=== PATIENT | male | born 1950 | race Caucasian/White ===

== ENCOUNTER 2019-07-09 12:30 | Inpatient (IN) | payer MEDICARE ==
--- NOTE | 2019-07-09 13:25 | HP ---
SUPERVISING PHYSICIAN: Pepe Monteiro MD CHIEF COMPLAINT: Increasing shortness of breath and fever. HISTORY OF PRESENT ILLNESS: Mr. Adhikari is a 68 year-old patient who has a history of asthma. He was in the clinic today complaining of congestion and fever with associated body chills, increasing cough, increasing shortness of breath. He endorses the symptoms started about 3 days ago and significantly worsened yesterday. In the clinic a BioFire exam was run and he was found to have influenza A. Initial exam of 2-view chest x-ray shows contractual developing of right-sided pneumonia, lower lobe. He was significantly tachypneic in the clinic with respirations over 26, purse lip breathing. Oxygen saturation was in the low 90s at rest. He is no 02 dependent. His initial labs showed a white count of 3,000 without a current left shift. Dr. Storm, primary care physician, saw the patient in clinic and it was felt the patient was showing signs of significant sepsis related to influenza A infection, developing right lower lobe pneumonia and requested the patient be directly admitted for initiation of treatment of influenza and developing acute acquired pneumonia. He was admitted in stable condition. PAST MEDICAL HISTORY: Asthma. PAST SURGICAL HISTORY: Tonsillectomy. CURRENT MEDICATIONS: No home medications listed. ALLERGIES: No known drug allergies. FAMILY HISTORY: Father at age 66 secondary to a heart attack. Mother is advanced age at 80. He has one brother who at age 69 recently due to diabetic complications. He has another brother that with a heart attack, age unknown. He has one daughter who is healthy and lives in [place]. SOCIAL HISTORY: The patient recently moved to [place] from [place] within the last 2 months. He is , he is retired. 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 He denies any tobacco use ever, only drinks alcohol very infrequently. Does not use illicit drugs. REVIEW OF SYSTEMS: CONSTITUTIONAL: Positive for fevers, chills and fatigue. RESPIRATORY: Positive for increasing weakness, shortness of breath, nasal congestion, cough, chest congestion, work to breath with dyspnea. CARDIOVASCULAR: Negative for chest pain, palpitations or syncopal episodes, pedal edema. GASTROINTESTINAL: Denies nausea, vomiting, diarrhea, constipation or abdominal pain. GENITOURINARY: Negative for dysuria, hematuria, polyuria. EXTREMITIES: Denies arthralgias, joint swelling. NEUROLOGIC: Denies ataxia, seizures, headaches, vision changes, syncopal episodes or other focal deficits. SKIN: Denies unexplained lesions, rashes, moles or unexplained changes. HEMATOLOGIC: Denies easy bruising, unexplained bleeding or transfusion reactions. PHYSICAL EXAMINATION: VITAL SIGNS: Temperature 101.3, heart rate 85, blood pressure 155/78, respirations 26 to 28 initially, improving to 20 oxygen saturation improving with breathing treatments. Admission weight 120.3 kg. GENERAL: The patient appeared to be in a little mild distress secondary to some acute dyspnea was significant initially but improved with breathing treatments. HEENT: Temperatures clear bilaterally, oropharynx was pink. Mucous membranes were dry but no lesions. Nasal passage did show some clear drainage and mild congestion. NECK: Supple,non-tender, full range of motion. CHEST: Lungs were diminished significantly throughout with some very faint inspiration and expiration wheezing with some notable rhonchi heard, more prominent on the left compared to the right, more on the posterior lateral aspect to the left lung field. No rales were noted. CARDIOVASCULAR: Regular rate and rhythm without appreciable murmurs, rubs, or gallops. ABDOMEN: Obese, soft, non-tender, positive bowel sounds. EXTREMITIES: No edema. NEUROLOGIC: He was alert and oriented x 3. Cranial nerves II through XII were grossly intact, facial features were symmetrical. Extraocular movements were within normal limits. There was no notable nystagmus. LABORATORY STUDIES: White count 3,000, hemoglobin 14, hematocrit 41.1. Platelet count 79,000, differential shows to be without a left shift. Chemistries showed a low sodium at 132, potassium low at 3.6, anion gap normal at 12, carbon dioxide low at 19. BUN 18, creatinine 0.93, blood sugar 207, calcium 8.1 with lactic acid 1.8. Bilirubin slightly elevated at 1.4. Otherwise, liver functions were within normal limits. Urinalysis was pending. MICROBIOLOGY: Blood cultures pending. Influenza by BioFire at the clinic showed to be positive for influenza A, negative for B. RADIOLOGY: Chest x-ray in the clinic per radiology interpretation, per my interpretation and Dr. Storm's review show a possible right lower lobe pneumonia with mild consolidation. ASSESSMENT: 1. Sepsis secondary to Influenza and probable right and left lower lobe pneumonia, community acquired. 2. Influenza A infection. 3. Right lower and left lobe pneumonia with associated sepsis.. 4. History of asthma. 5. Thrombocytopenia and neutropenia, uncertain etiology. 6. Mild electrolyte imbalance with hyponatremia due to community acquired pneumonia. 7. Hyperglycemia with no formal history of diabetes. 8. Mildly elevated bilirubin probably due to some mild dehydration. PLAN: Mr. Adhikari is going to be admitted for initiation of treatment of community acquired pneumonia. Will initiate treatment for community acquired pneumonia artificial tears Rocephin and azithromycin as well a treat influenza with antivirals in the form of Xofluza. He will have Motrin and Tylenol as needed. Will start him on some IV fluids for some mild dehydration. Will recheck x-ray in the morning as well as chemistries and a CBC. Will order Lovenox but probably need to hold it until we get a repeat of his platelets in the morning since they are below 100,000. He is on aggressive pulmonary hygiene with Duoneb treatments and p.r.n. albuterol as needed. I anticipate his length of stay to be at least 2 to 3 days. Until we can transition him to outpatient management, I will continue to monitor and treat as needed. #[id number] [facility]
[2019-07-09] MEDS ORDERED: ALBUTEROL SULFATE 2.5 MG/3 ML VIAL NEB PRN (13:27)
[2019-07-09] MEDS ORDERED: SODIUM CHLORIDE 0.9% (FLUSH) 10 ML SYG IV PRN (13:27)
[2019-07-09] MEDS ORDERED: IBUPROFEN 400 MG TAB PO PRN (13:27)
[2019-07-09] MEDS ORDERED: ACETAMINOPHEN 325 MG TAB PO PRN (13:27)
[2019-07-09] MEDS ORDERED: IV SET AND CAP CHANGE INJ INJ SCH (13:30)
[2019-07-09] MEDS ORDERED: SODIUM CHL 0.9% 50ML MIN-BAG+ 50 ML IVPB ONE (15:16)
[2019-07-09] MEDS ORDERED: cefTRIAXone SODIUM 1 GM VIAL ONE (15:17)
[2019-07-09] MEDS: cefTRIAXone SODIUM 1 GM in SODIUM CHL 0.9% 50ML MIN-BAG+ 50 ML IVPB SCH (15:22)
[2019-07-09] MEDS: AZITHROMYCIN 250 MG TAB PO SCH (15:22)
[2019-07-09] MEDS ORDERED: BALOXAVIR MARBOXIL 20 MG TAB PO ONE (15:38)
[2019-07-09] MEDS ORDERED: BALOXAVIR MARBOXIL 40 MG TAB PO ONE (15:56)
[2019-07-09] MEDS: IPRATROPIUM/ALBUTEROL 3 ML VIAL INH SCH ×3 (16:00→20:10)
[2019-07-09] MEDS ORDERED: OMEPRAZOLE CAP 20 MG CAP ONE (19:58)
[2019-07-09] MEDS: ENOXAPARIN SODIUM 40 MG/0.4 ML SYG SUBCU SCH (21:01)
[2019-07-09] MEDS: SODIUM CHLORIDE 0.9% 1000ML 1,000 ML IVS PRN (21:01)
[2019-07-10] MEDS: SODIUM CHLORIDE 0.9% 1000ML 1,000 ML IVS PRN (03:20)
[2019-07-10] MEDS: OMEPRAZOLE CAP 20 MG CAP PO SCH (06:00)
--- NOTE | 2019-07-10 08:20 | RAD ---
EXAM DESCRIPTION: Chest x-ray two views: CLINICAL HISTORY: Pneumonia COMPARISON: None TECHNIQUE: PA and lateral views of the chest were obtained. FINDINGS: The heart is normal in size . The hilar and mediastinal structures are within normal limits. The pulmonary vascularity is normal . Retrocardiac infiltrate is noted. Peribronchial thickening and reactive airway changes are seen.. The bony structures are unremarkable. IMPRESSION: Left lower lobe infiltrate. Peribronchial thickening and generalized changes of bronchitis or reactive airway disease. Electronically signed by: Janene Beck MD 07/10/2019 8:19 AM [facility]
[2019-07-10] MEDS: IPRATROPIUM/ALBUTEROL 3 ML VIAL INH SCH ×4 (08:32→20:33)
[2019-07-10] MEDS ORDERED: cefTRIAXone SODIUM 1 GM VIAL ONE (14:30)
[2019-07-10] MEDS ORDERED: SODIUM CHL 0.9% 50ML MIN-BAG+ 50 ML IVPB ONE (14:30)
[2019-07-10] MEDS: AZITHROMYCIN 250 MG TAB PO SCH (14:53)
[2019-07-10] MEDS: cefTRIAXone SODIUM 1 GM in SODIUM CHL 0.9% 50ML MIN-BAG+ 50 ML IVPB SCH (14:53)
--- NOTE | 2019-07-10 15:55 | PN ---
SUPERVISING PHYSICIAN: Pepe Monteiro MD DATE: 07/10/19 SUBJECTIVE: The patient notes he is feeling a little bit better today. He is not quite as short of breath He does have a cough, it's nonproductive. He has been afebrile now since admission yesterday. He has had no chest pain, nausea or vomiting or other complaints. OBJECTIVE: VITAL SIGNS: Temperature 98.1, heart rate 60, blood pressure 160/72, respirations 18, oxygen saturation 94% on room air at rest. GENERAL: The patient is resting comfortably and appears to be in no distress. CHEST: Lung sounds are diminished towards the bases. There is just a faint rhonchi heard on the posterolateral left lung field, no wheezing, no rales. HEART: Regular rate and rhythm. ABDOMEN: Soft, nontender. Positive bowel sounds. EXTREMITIES: No edema. NEUROLOGIC: Alert and oriented times three. LABORATORY: White count 3,400, hemoglobin 13.5, hematocrit 38.5 with differential showing to be without a left shift. Chemistries show normal electrolytes today with BUN of 14, creatinine 0.82. MICROBIOLOGY: Blood cultures remain negative. RADIOLOGY: Repeat chest x-ray today per radiology interpretation shows left lower lobe infiltrate, some peribronchial thickening. ASSESSMENT: 1. Sepsis secondary to influenza and community acquired pneumonia, appears to be more left lower lobe than that. 2. Influenza A infection. 3. Right lower lobe pneumonia associated with sepsis. 4. History of asthma. 5. Thrombocytopenia and neutropenia, uncertain etiology. 6. Mild electrolyte imbalance with hyponatremia now resolved, probably due to pneumonia.. 7. Hyperglycemia with no formal history of diabetes. 8. Mildly elevated bilirubin probably due to some mild dehydration. . PLAN: Will continue with aggressive pulmonary hygiene treatment. He has been on Xofluza already. He remains on azithromycin and Rocephin. Will plan to repeat a CBC in the morning and anticipate to hopefully be able to discharge tomorrow. Until the, we will continue to monitor and treat as needed. #[id number] [facility]
[2019-07-10] MEDS: ENOXAPARIN SODIUM 40 MG/0.4 ML SYG SUBCU SCH (21:17)
[2019-07-11] MEDS: OMEPRAZOLE CAP 20 MG CAP PO SCH (06:11)
[2019-07-11] MEDS: IPRATROPIUM/ALBUTEROL 3 ML VIAL INH SCH ×2 (08:42→12:38)
[2019-07-11] MEDS: AZITHROMYCIN 250 MG TAB PO SCH (12:51)
[2019-07-11 13:21] VITALS: O2SAT 99
[2019-07-11 14:02] VITALS: BP 177/67; TEMP 97.9
[2019-07-11] MEDS: cefTRIAXone SODIUM 1 GM in SODIUM CHL 0.9% 50ML MIN-BAG+ 50 ML IVPB SCH (14:02)
--- NOTE | 2019-08-03 13:44 | DS ---
SUPERVISING PHYSICIAN: Pepe Monteiro MD ADMISSION DIAGNOSIS: 1. Sepsis secondary to Influenza and probable right and left lower lobe pneumonia, community acquired. 2. Influenza A infection. 3. Right lower and left lobe pneumonia with associated sepsis. 4. History of asthma. 5. Thrombocytopenia and neutropenia, uncertain etiology. 6. Mild electrolyte imbalance with hyponatremia due to community acquired pneumonia. 7. Hyperglycemia with no formal history of diabetes. 8. Mildly elevated bilirubin probably due to some mild dehydration. DISCHARGE DIAGNOSIS: 1. Sepsis secondary to influenza and community acquired pneumonia, right lower lobe. 2. Influenza A infection. 3. Right lower lobe pneumonia associated with sepsis. 4. History of asthma. 5. Thrombocytopenia and neutropenia, uncertain etiology. 6. Mild electrolyte imbalance with hyponatremia now resolved, probably due to pneumonia. 7. Hyperglycemia with no formal history of diabetes. 8. Mildly elevated bilirubin due to dehydration, resolving REASON FOR HOSPITALIZATION: Mr. Adhikari is a 68 year-old patient who has a history of asthma. He was in the clinic today complaining of congestion and fever with associated body chills, increasing cough, increasing shortness of breath. He endorses the symptoms started about 3 days ago and significantly worsened yesterday. In the clinic a BioFire exam was run and he was found to have influenza A. Initial exam of 2-view chest x-ray shows concern for developing right-sided pneumonia, lower lobe. He was significantly tachypneic in the clinic with respirations over 26, purse lip breathing. Oxygen saturation was in the low 90s at rest. He is no O2 dependent. His initial labs showed a white count of 3,000 without a current left shift. Dr. Storm, primary care physician, saw the patient in clinic and it was felt the patient was showing signs of significant sepsis related to influenza A infection, developing right lower lobe pneumonia and requested the patient be directly admitted for initiation of treatment of influenza and developing acute acquired pneumonia. He was admitted in stable condition. LABORATORY: White count on discharge 2,800, hemoglobin 13.3, hematocrit 38.2, differential without a left shift. Chemistries on discharge showed normal electrolytes with BUN 14, creatinine 0.82. MICROBIOLOGY: Blood cultures remained negative after 5 days. RADIOLOGY: Chest x-ray initially on admission showed left lower lobe infiltrate with peribronchial thickening and generalized changes of bronchitis or reactive airway disease. HOSPITAL COURSE: Mr. Adhikari was admitted for treatment of right lower lobe pneumonia secondary to influenza A. He was started on aggressive pulmonary hygiene and antibiotic coverage with azithromycin and Rocephin as well as influenza with Xofluza. He did show good improvement. Vital signs were stable. He was maintaining room air saturations around 93% to 95%. He was showing to be clinically improved well enough to continue with outpatient management. PLAN: Mr. Adhikari was discharged on 07/11/19 with instructions to followup with Dr. Storm in 7 days or sooner, just to call for an appointment. He was to resume his home medications as instructed and given instructions to return to the Emergency Department if his symptoms worsened or he had other concerning symptoms. Diet was his usual diet. Activity to increase as tolerated. MEDICATIONS PRESCRIBED ON DISCHARGE: 1. Albuterol sulfate inhaler 1 puff q.4h. as needed, 1 inhaler, no refills. 2. Cefdinir 300 mg twice daily, #20, no refills. CONDITION ON DISCHARGE: Stable and improved. DISPOSITION: The patient was discharged to home. #[id number] [facility]
== END 2019-07-11 13:30 | disposition home or self-care (01) | DRG 871 ==
LOC: MS 12:30 → UNDOADMIN 12:30 → MS 13:23
PROVIDERS: ADMIT Nurse Practitioner Family; ATTEND Nurse Practitioner Family
DX: A41.9 Sepsis, unspecified organism (principal); J10.00 Influenza due to other identified influenza virus with unspecified type of pneumonia; E87.1 Hypo-osmolality and hyponatremia; E86.0 Dehydration; E87.6 Hypokalemia; J45.909 Unspecified asthma, uncomplicated; D69.6 Thrombocytopenia, unspecified; R73.9 Hyperglycemia, unspecified; E66.9 Obesity, unspecified; Z68.37 Body mass index [BMI] 37.0-37.9, adult

== ENCOUNTER → 2020-05-15 | Outpatient (CLI) | payer MEDICARE ==
--- NOTE | 2020-05-15 11:17 | RAD ---
EXAM DESCRIPTION: Knee,Left Complete: CR/DR/XR. CLINICAL HISTORY: 69 years MalePAIN COMPARISON: Radiographs of the pelvis and right knee on the same visit. TECHNIQUE: 4 views AP standing, lateral standing, 45 degree AP flexion standing and patellar sunrise left knee. FINDINGS: Marked loss of joint space medially with [id number] medial condyle and medial plateau. Subchondral sclerosis and radiolucencies and marginal spurs. Mild to moderate loss in the lateral compartment with significant medial shaft of femur and patella. Lateral marginal spurs and subchondral sclerosis. Suprapatellar effusion and marginal spurs and hypertrophy left patellofemoral joint. Lateral joint space narrowed more than medial. Minimal lateral shift. Posterior soft tissue vascular calcifications. No fractures.. IMPRESSION: Left knee tricompartmental osteoarthritis with [id number] medial compartment, marginal spurs, and significant medial shift of the femur on the tibia. Hypertrophic spurs encroaching on the patellofemoral joint. No fractures. Electronically signed by: Marquise Yadav MD 05/15/2020 11:16 AM [facility]
--- NOTE | 2020-05-15 11:22 | RAD ---
EXAM DESCRIPTION: Pelvis: CR/DR/XR CLINICAL HISTORY: PAIN COMPARISON: None Available. TECHNIQUE: One view AP Pelvis FINDINGS: No fracture dislocation. Low density minimally decreased around the femoral heads femoral necks acetabula and pubic bones. Symmetric bilateral hip joints with minimal hypertrophy of the superior lateral acetabular margins. Inferior hypertrophy SI joints. Spondylosis L4-5 and L5-S1. No abnormal radiodense objects in the soft tissues or joint spaces. IMPRESSION: Minimal hypertrophy of the superior lateral acetabulum bilaterally with no fracture or dislocation. Inferior hypertrophic changes in the bilateral SI joints. L4-5 and L5-S1 spondylosis. Minimal bone density loss. Electronically signed by: Marquise Yadav MD 05/15/2020 11:21 AM [facility]
--- NOTE | 2020-05-15 11:52 | RAD ---
EXAM DESCRIPTION: Knee,Right Complete: CR/DR/XR. CLINICAL HISTORY: 69 years MalePAIN COMPARISON: Radiographs of the left knee and pelvis on the same visit. TECHNIQUE: 4 views AP standing, lateral standing, 45 degree AP flexion standing, and patellar sunrise right knee FINDINGS: Medial and lateral compartments are [id number] with subchondral sclerosis and radiolucencies. Moderate medial shaft of the femur on the tibia. Marginal spurs and internal spurs. Medial and lateral joint effusions. Hypertrophic changes in the patella with minimal joint space narrowing. Large medial trochlear spur encroaching on the medial joint space. Suprapatellar effusion. Bony loose body versus trochlear spur encroaching on the infrapatellar fat pad. No other radiodense objects in the soft tissues and joint spaces. No fracture. IMPRESSION: Tricompartmental osteoarthritis right knee. Marked joint space narrowing with [id number] medial and lateral. Moderate medial shift of the femur on the tibia. Predominantly hypertrophic changes in the patellofemoral joints paces more medial than lateral. Suprapatellar effusion. Large bone spur from the femoral trochlea versus bony loose body encroaching on the infrapatellar fat pad. Electronically signed by: Marquise Yadav MD 05/15/2020 11:[address] [facility]
== END ==
LOC: RAD 07:58
PROVIDERS: ATTEND Orthopaedic Surgery
DX: M17.0 Bilateral primary osteoarthritis of knee (principal); M25.761 Osteophyte, right knee; M25.762 Osteophyte, left knee; M47.896 Other spondylosis, lumbar region; M47.897 Other spondylosis, lumbosacral region; M89.352 Hypertrophy of bone, left femur; M89.351 Hypertrophy of bone, right femur; M89.40 Other hypertrophic osteoarthropathy, unspecified site; M85.88 Other specified disorders of bone density and structure, other site; M89.38 Hypertrophy of bone, other site